=== PATIENT | female | born 1990 | race Two or more races ===

== ENCOUNTER 2016-12-18 18:45 | Outpatient (CLI) | payer BC ==
--- NOTE | 2016-12-19 11:07 | Ultrasound Report ---
PELVIC ULTRASOUND: 12/18/2016 CLINICAL INDICATION: Pelvic pain, ovarian cyst. COMPARISON: CT 03/30/2016, ultrasound 09/29/2013. TECHNIQUE: Transabdominal pelvic ultrasound performed for global evaluation. Transvaginal pelvic ul trasound performed for detailed evaluation. Real-time scanning performed and static images obtained. FINDINGS: The uterus is anteverted, measuring 8.5 x 5.9 x 4.3 cm. The endometrial echo complex yolanda ures 11 mm. No focal myometrial lesion is present. The right ovary measures 3.4 x 2.4 x 2.1 cm, and demonstrates a 1.6 cm hemorrhagic cyst. The left ovary measures 2.2 x 1.9 x 1.8 cm, and appears unr emarkable. No free fluid is present. IMPRESSION: HEMORRHAGIC CYST IN THE RIGHT OVARY. JOB #: [id number] EXT JOB #:[id number]
== END 2016-12-18 18:46 | disposition home or self-care (01) ==
LOC: DI 18:45
PROVIDERS: ATTEND Physician Assistant Medical
DX: N83.201 Unspecified ovarian cyst, right side (principal)
CPT/HCPCS: 76830; 76856

== ENCOUNTER 2017-02-17 08:00 | Outpatient (CLI) | payer BC | END 2017-02-17 23:59 | disposition home or self-care (01) | LOC: LAB.R 08:00 | PROVIDERS: ATTEND Obstetrics & Gynecology | DX: Z11.3 Encounter for screening for infections with a predominantly sexual mode of transmission (principal) | CPT/HCPCS: 87491; 87591 ==

== ENCOUNTER 2017-05-29 12:38 | Outpatient (CLI) | payer BC ==
--- NOTE | 2017-06-01 16:21 | Ultrasound Report ---
OB ULTRASOUND: 05/29/2017 CLINICAL INDICATION: anatomy. TECHNIQUE: Real-time scanning was performed with sales representative leather goods static images obtained. LAST MENSTRUAL PERIOD: 12/23/2016 Clinical Age: 22 weeks 3 days US Age: 21 weeks 6 days EFW Hadlock: 470 grams EFW% Hadlock: --- Heart Rate: 140 bpm EDC: 09/29/2017 US EDC: 10/03/2017 BPD Hadlock: 21 weeks 4 days; Mean mm 52 cm HC Hadlock: 21 weeks 3 days; Mean mm 192 AC Hadlock: 21 weeks 4 days; Mean mm 165 FL Hadlock: 22 weeks 5 days; Mean mm 40 Presentation: cephalic Placental Location: R - wrap Cervical Length: 3.2 cm Amniotic Fluid: 15.2 cm FINDINGS: There is a single viable intrauterine gestation, in cephalic presentation. heart rate is 140 BPM. The placenta is right lateral. There appears to be a velamentous cord insertion present, without evidence of vasa previa. Amniotic fluid volume is subjectively normal, with a deepest pocket of 4.9 cm. By size, the fetus measures 21 weeks 6 days (22 weeks 3 days by LMP). The following anatomic structures were visualized and appear normal: The intracranial contents, including the ventricles and posterior fossa; the lips and orbits; the spine; the heart, including 4 chamber view and outflow tracts, and diaphragm; the abdominal contents, including the stomach, the bilateral kidneys, and urinary bladder, as well as a normal 3 vessel cord insertion; 4 limbs. No free fluid or adnexal lesion is appreciated. IMPRESSION: SINGLE VIABLE INTRAUTERINE GESTATION, WITH SIZE IN KEEPING WITH LMP DATING. NORMAL ANATOMIC SURVEY. VELAMENTOUS UMBILICAL CORD INSERTION INTO THE PLACENTA, WHICH CAN BE ASSOCIATED WITH GROWTH RESTRICTION. RECOMMEND SERIAL FOLLOWUP ULTRASOUND FOR GROWTH ASSESSMENT EVERY FOUR TO SIX WEEKS BEGINNING AT 24 WEEKS. TD: 05/29/2017 16:15 [facility]
== END 2017-05-29 12:39 | disposition home or self-care (01) ==
LOC: DI 12:38
PROVIDERS: ATTEND Obstetrics & Gynecology
DX: Z36.9 Encounter for antenatal screening, unspecified (principal)
CPT/HCPCS: 76811

== ENCOUNTER 2017-06-24 12:49 | Outpatient (CLI) | payer BC ==
--- NOTE | 2017-06-26 11:04 | Ultrasound Report ---
OB FOLLOWUP: 06/24/2017 CLINICAL INDICATION: Check growth, velamentous cord insertion COMPARISON: 05/29/2017. TECHNIQUE: Real-time scanning was performed with sales representative sales manager static images obtained. LAST MENSTRUAL PERIOD 12/27/2016 Clinical Age 25 weeks 4 days US Age 25 weeks 3 days EFW Hadlock 850 g EFW% Hadlock --- Heart Rate 137 bpm EDC --- US EDC 10/04/2017 BPD Hadlock 25 weeks 3 days; Mean mm 62.7 HC Hadlock 25 weeks 1 day; Mean mm 231.8 AC Hadlock 25 weeks 3 days; Mean mm 208.5 FL Hadlock 26 weeks 3 days; Mean mm 48.9 Presentation cephalic Placental Location anterior Cervical Length --- Amniotic Fluid 19.0 cm FINDINGS: There is a single viable intrauterine gestation, in cephalic presentation. heart rate is 137 BPM. The placenta is anterior, without evidence of previa. Amniotic fluid volume is normal, with an DEANDRA of 19. The cord insertion into the placenta again appears velamentous. By size, the fetus measures 25 weeks 3 days (25 weeks 4 days by previous sonogram). No free fluid or adnexal lesion is appreciated. IMPRESSION: SINGLE VIABLE INTRAUTERINE GESTATION, WITH EXPECTED GROWTH. STABLE APPEARANCE OF VELAMENTOUS CORD INSERTION. [facility]
== END 2017-06-24 12:50 | disposition home or self-care (01) ==
LOC: DI 12:49
PROVIDERS: ATTEND Obstetrics & Gynecology
DX: Z36.4 Encounter for antenatal screening for fetal growth retardation (principal)
CPT/HCPCS: 76816

== ENCOUNTER 2017-07-28 11:43 | Outpatient (CLI) | payer BC, OTHER ==
--- NOTE | 2017-07-28 16:17 | Ultrasound Report ---
OB ULTRASOUND: 07/28/2017 CLINICAL INDICATION: Check growth, velamentous cord insertion. COMPARISON: 06/24/2017, 05/29/2017. TECHNIQUE: Real-time scanning was performed with renewals representative static images obtained. LAST MENSTRUAL PERIOD 12/23/2016 Clinical Age 31 weeks 0 days US Age 31 weeks 2 days EFW Hadlock 1726 grams EFW% Hadlock 52% Heart Rate 141 bpm EDC 09/29/2017 US EDC 09/27/2017 BPD Hadlock 30 weeks 5 days; Mean mm 76 HC Hadlock 31 weeks 2 days; Mean mm 285 AC Hadlock 31 weeks 2 days; Mean mm 272 FL Hadlock 31 weeks 1 day; Mean mm 60 Presentation cephalic Placental Location anterior Cervical Length 2.87-closed Amniotic Fluid DEANDRA 13.8; MVP 5.6 cm FINDINGS: There is a single viable intrauterine gestation, in cephalic presentation. heart rate is 141 BPM. The placenta is anterior. Amniotic fluid volume is normal, with an DEANDRA of 13.8. By size, the fetus measures 31 weeks 2 days (31 weeks 0 days per order ). Estimated weight by Hadlock method is 1726 grams. No free fluid or adnexal lesion is appreciated. IMPRESSION: SINGLE VIABLE INTRAUTERINE GESTATION, WITH SIZE IN KEEPING WITH GIVEN DATING. ESTIMATED WEIGHT OF 1726 GRAMS. NORMAL DEANDRA. TD: 07/28/2017 15:14 MTDD
== END 2017-07-28 11:44 | disposition home or self-care (01) ==
LOC: DI 11:43
PROVIDERS: ATTEND Obstetrics & Gynecology
DX: Z36.9 Encounter for antenatal screening, unspecified (principal)
CPT/HCPCS: 76816

== ENCOUNTER 2017-08-05 16:55 | Outpatient (CLI) | payer BC, OTHER ==
--- NOTE | 2017-08-05 18:32 | PROVIDER PROGRESS NOTE ---
Subjective - Prog Note Date Prog Note Date: 08/05/17 Prog Note Time: 18:30 - Subjective Subjective: Cheri Gongora is a 26-year-old -[place] woman at 34 weeks gestation who reports decreased movement. She presents to labor and delivery without signs or symptoms of preeclampsia or labor. Her abdomen is nontender and acontractile. Her NST is reactive and heart tracing is category 1. Patient is known to have marginal cord insertion. She is to begin biweekly NSTs at 34 weeks. She is currently having a growth monitored with every 4 week ultrasounds. Objective - Vital Signs/Intake & Output Vital Signs: Vital Signs x48h Temp Pulse Resp BP Pulse Ox 08/05/17 17:17 98.2 F 85 16 138/90 H 99 08/05/17 17:05 85 124/80
[2017-08-05 18:47] VITALS: BP 124/80
== END 2017-08-05 18:30 | disposition home or self-care (01) ==
LOC: WFO 16:55 → FBP 16:57 → WFO 18:30
PROVIDERS: ATTEND Obstetrics & Gynecology
DX: O36.8130 Decreased fetal movements, third trimester, not applicable or unspecified (principal); Z3A.34 34 weeks gestation of pregnancy
CPT/HCPCS: 99213

== ENCOUNTER 2017-08-27 08:00 | Outpatient (CLI) | payer BC, OTHER | END 2017-08-27 08:01 | disposition home or self-care (01) | LOC: LAB.R 08:00 | PROVIDERS: ATTEND Obstetrics & Gynecology | DX: Z36.89 Encounter for other specified antenatal screening (principal) | CPT/HCPCS: 87081 ==

== ENCOUNTER 2017-09-28 11:38 | Inpatient (IN) | payer BC, OTHER ==
[2017-09-28] MEDS ORDERED: LACTATED RINGERS 1,000 ML IV ONE ×2 (13:04→13:35)
[2017-09-28] MEDS ORDERED: OXYTOCIN 10 UNIT/ML VIAL ONE (13:04)
[2017-09-28] MEDS ORDERED: WITCH HAZEL/GLYCERIN 1 EACH MED..PAD TOP PRN (13:07)
[2017-09-28] MEDS ORDERED: IBUPROFEN 800 MG TABLET PO SCH (13:07)
[2017-09-28] MEDS ORDERED: OXYTOCIN 10 UNIT/ML VIAL IM ONE (13:07)
[2017-09-28] MEDS ORDERED: HYDROCORTISONE/PRAMOXINE 10 GM PR PRN (13:07)
[2017-09-28] MEDS ORDERED: LIDOCAINE 1% 50 ML MDV TD ONE (13:20)
[2017-09-28] MEDS ORDERED: LIDOCAINE 1% 50 ML MDV ONE (13:27)
[2017-09-28] MEDS ORDERED: fentaNYL 100 MCG/2 ML VIAL IVP SCH (13:30)
[2017-09-28] MEDS ORDERED: SODIUM CHLORIDE FLUSH 0.9% 10 ML SYRINGE ONE (13:34)
[2017-09-28] MEDS ORDERED: fentaNYL 100 MCG/2 ML VIAL ONE (13:35)
[2017-09-28] MEDS ORDERED: diphenhydrAMINE 25 MG CAPSULE PO PRN (14:13)
[2017-09-28] MEDS ORDERED: OXYTOCIN/SODIUM CHLORIDE 250 ML IV ONE (14:13)
[2017-09-28] MEDS ORDERED: ONDANSETRON 4 MG/2 ML VIAL IVP PRN (14:13)
--- NOTE | 2017-09-28 14:21 | DELIVERY NOTE ---
Delivery Note - Infant Delivery Method Infant Delivery Method: positive: Spontaneous vaginal delivery - Presentation Presentation: positive: Vertex - Nuchal Cord Nuchal Cord: positive: None - Anesthetic Anesthetic: positive: Lidocaine - 1% plain Volume: positive: Other (20cc) - Amniotic Fluid Description Amniotic Fluid Description: positive: Clear - Episiotomy Type Episiotomy Type: positive: None - Laceration Laceration: positive: 2nd degree - Suture Suture Type: positive: Vicryl Suture Size: positive: 2-0, 3-0 - Delivery Outcome Delivery Outcome: positive: Livebirth - [place]: positive: Bulb syringe, Stimulated, Warmed [place] sex: positive: Female - Cord Cord: positive: 3 vessels - Placenta Placenta: positive: Intact (Marginal Cord Insertion) - Estimated Blood Loss Estimated Blood Loss (in cc): 400 - Post Delivery Events Post Delivery Events: positive: No post delivery events - Delivery Comments (Free Text/Narrative) Delivery Comments (Free Text/Narrative): Patient arrived complete and delivered shortly after
[2017-09-28] MEDS ORDERED: LACTATED RINGERS 1,000 ML IV SCH (15:00)
[2017-09-28] MEDS: IBUPROFEN 600 MG TABLET PO SCH ×2 (16:58→23:06)
[2017-09-28] MEDS: ACETAMINOPHEN 500 MG TABLET PO SCH (16:59)
--- NOTE | 2017-09-28 22:40 | PROCEDURE REPORT ---
DATE OF SERVICE: 09/28/2017 Physician: Trung Castorena MD PREDELIVERY DIAGNOSES: 1. A 39-week, 6 day gestation. 2. Active labor, second stage. 3. Rapid labor. 4. Velamentous/marginal cord insertion. POSTOPERATIVE PREDELIVERY DIAGNOSES: 1. A 39-week, 6 day gestation. 2. Active labor, second stage. 3. Rapid labor. 4. Velamentous/marginal cord insertion. 5. Second-degree laceration. MARBLE MACHINE TENDER: Trung Castorena MD, FACOG; Comfort Nj RN. (attended ) ANESTHESIA: 20 mL of lidocaine local to the perineum; sedation with 100 mcg of fentanyl IV push. COMPLICATIONS: None. BLOOD LOSS: 400. PROCEDURE: Vaginal delivery with subsequent repair second degree laceration. FINDINGS: I was alerted to the patient arriving at labor and delivery at 1249 hours. The patient rapidly progressed and delivered at 1307 hours, at the time The had no evident trauma or congenital anomalies. weight 6 pounds 13 ounces with Apgars of 8/9. There is clear fluid at the time of delivery and no nuchal cord. Placenta was delivered intact with 3-vessel cord. There was no cord entanglement. The cord insertion was marginal or velamentous. Placenta was inspected and found to be intact without evidence of abruption, infection or meconium. Perineum had a midline second degree laceration which extended upward 4 cm, but did not extend to the external anal muscle. This was uneventfully repaired. TECHNIQUE: At 1249, I was alerted of patient arriving in labor and delivery, complete and pushing. I came immediately to labor and delivery and arrived just as the head was . While I was putting on my gloves, Comfort Nj controlled the head during for an atraumatic delivery of the head but the posterior shoulder did catch the perineum resulting in a second-degree laceration. The sequence of events was rapid and IV could not be placed on such short notice. was placed on maternal abdomen. Once cord stopped pulsating, it was doubly clamped and transected. Cord blood sample was taken. I began laceration repair after injecting the perineum with 20 mL of lidocaine. The patient was very anxious and complained of discomfort. Subsequently, IV was started and 100 mcg of fentanyl was given. After allowing some time for the fentanyl effect to take hold, we began the repair. The apex of the vaginal wound was identified and this running suture started at that point and continued down to the hymenal ring with care taken to reapproximate the hymenal ring. Three interrupted sutures of 2-0 Vicryl were placed through the perineal body and brought it into apposition. The perineal skin was closed with interrupted vertical mattress stitches of 3-0 Vicryl. The wound was inspected and found to be intact and no further bleeding. Cervix was visualized intact. At that point, the procedure was finished and patient was allowed to begin nursing. All sponge, needle and instrument counts were confirmed as correct. TD: 09/28/2017 15:36 ALEX
[2017-09-29] MEDS: ACETAMINOPHEN 500 MG TABLET PO SCH ×2 (00:36→08:05)
[2017-09-29] MEDS: IBUPROFEN 600 MG TABLET PO SCH ×2 (04:44→16:31)
[2017-09-29 06:31] LABS: BASOPHILS % (AUTO) 0.2 %; EOSINOPHILS % (AUTO) 0.2 %; LYMPHOCYTES # (AUTO) 1.8 10^3/uL (1.5-3.5); LYMPHOCYTES % (AUTO) 12.2 %; MEAN CORPUSCULAR HEMOGLOBIN 29.2 pg (27.0-31.0); MEAN CORPUSCULAR HGB CONC 32.4 g/dL (32.0-36.0); MEAN PLATELET VOLUME 7.9 fL (7.9-10.8); MONOCYTES # (AUTO) 0.6 10^3/uL (0.0-1.0); MONOCYTES % (AUTO) 4.2 %; NEUTROPHILS # (AUTO) 12.2 10^3/uL (1.5-6.6); NEUTROPHILS % (AUTO) 83.2 %; PLT - PLATELET COUNT 252 10^3/uL (130-450); RED BLOOD COUNT 3.42 10^6/uL (4.20-5.40); RED CELL DISTRIBUTION WIDTH 13.3 % (12.0-15.0); WHITE BLOOD COUNT 14.7 x10^3/uL (4.8-10.8)
--- NOTE | 2017-09-29 09:35 | HISTORY & PHYSICAL EXAMINATION ---
DATE OF SERVICE: 09/28/2017 Physician: Trung Castorena MD DIAGNOSES 1. Term , labor. 2. Velamentous cord insertion. 3. Rapid labor. HISTORY OF PRESENT ILLNESS: The patient is a 26-year-old primigravida at 39 weeks' 6 days' gestation based on LMP of December 23, yielding an EDC of September 29 confirmed by 11-week ultrasound. Earlier in the morning, she called complaining of contractions before 11:00 and was told to come to Labor and Delivery. She presented to Labor and Delivery at 1245 hours in active labor and complete. Prior to this onset of labor, at 7 a.m. this morning she had Anthony Muse. She had no suspicion of ruptured membranes. She has no signs or symptoms of preeclampsia. Group B streptococcus status is negative. [facility]. She was identified as having a marginal cord insertion that was followed with serial ultrasound. growth was as expected. She was a planned induction at 40 weeks. BASELINE OBSTETRICAL LABS: Blood type O positive, antibody screen negative, GC/ chlamydia negative, RPR negative, hepatitis B surface antigen negative, GC negative, quad marker normal. Glucola screen 114. GBS negative. PAST MEDICAL HISTORY: Healthy, active young adult. No chronic disease history. Prior history of anemia. ALLERGIES: NO KNOWN DRUG ALLERGIES. MEDICATIONS: vitamins with iron. FAMILY HISTORY: Asthma, mother. Leukemia, father. Diabetes, paternal relatives. Depression. No congenital anomalies, sickle cell, or malformations. SOCIAL HISTORY: Stable domestic relationship. 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 No drug, tobacco, or alcohol use. REVIEW OF SYSTEMS CONSTITUTIONAL: Negative. HEENT: Negative. LUNGS: Negative. CARDIAC: Negative. GASTROINTESTINAL: Negative. GENITOURINARY: Negative. MUSCULOSKELETAL: Negative. SKIN: Negative. NEUROLOGIC: Negative. PHYSICAL EXAMINATION GENERAL: Patient in the throes of labor, coming close to or actually . VITAL SIGNS: Temperature 98.8, pulse 77, blood pressure 139/82, respirations 20 , saturation 100. Exam done after delivery. HEENT: Dentition in good repair. Supple neck. No thyromegaly. EOMI. Nonicteric sclerae. LUNGS: Clear to auscultation. CARDIAC: Regular. No murmur or gallop. BREASTS: Full. No mass. Lactating. ABDOMEN: No tenderness. GENITOURINARY: Uterus firm, nontender, 18-week size. External genitalia: Second-degree midline laceration. Cervix intact. EXTREMITIES: Moves all 4 extremities well. No marked edema. NEUROLOGIC: Grossly intact. ADMISSION LABS: Pending. ASSESSMENT: Patient delayed presenting at the hospital and at the time of initial presentation was near . Uneventful delivery. Reference my dictated note. PLAN: Normal supportive care during recovery. TD: 09/28/2017 15:29 MTDD
[2017-09-29 13:12] VITALS: BP 128/82
--- NOTE | 2017-09-29 16:54 | DISCHARGE SUMMARY ---
Physician: Trung Castorena MD DATE OF ADMISSION: 09/28/2017 DATE OF DISCHARGE: 09/29/2017 DIAGNOSIS: Term ; active labor, successful vaginal delivery of a living female , precipitous delivery; marginal cord insertion. PROCEDURES: Manually assisted vaginal delivery; second-degree laceration repair. COMPLICATIONS: None. HISTORY: The patient is a 26-year-old primigravida who was closely followed at our clinic due to velamentous cord insertion. At 0800 on Thursday she called in to report contractions and was recommended to come to Labor and Delivery. She delayed coming to Labor and Delivery and arrived at or about 1245 hours, complete and pushing. HOSPITAL COURSE: Patient arrived and immediately came to Labor and Delivery. At the time of my arrival, the patient was , with Comfort jN attending the delivery. Delivery procedure done remarkably. Reference note. There was an uneventful second-degree laceration repair. Blood loss was minimal at 400. Mother, father, and baby all bonded well. Patient recovered well with pain well in control. She nursed without difficulty. By post-delivery day number 1, she had recovered her normal function and self-care abilities. She strongly desired discharge home and was discharged after post-24 hours of the delivery. Lochia was scant. Post-delivery hemoglobin was 10.0. She was given complete wound care and child's nurse instructions. DISCHARGE MEDICATIONS 1. Motrin 600 q.6 hours. 2. Vicodin 5/325 every 4 hours p.r.n. breakthrough pain. 3. Ferrous sulfate 325 b.i.d. 4. Colace 250 b.i.d. TD: 09/29/2017 08:48
== END 2017-09-29 13:15 | disposition home or self-care (01) | DRG 775 ==
LOC: FBP 12:40 → WFO 12:44 → FBP 12:44 → UNDOADMIN 13:06 → FBP 13:06 → WFO 13:06 → EDSTATUS 13:13 → UNDODISIN 09-29 13:15
PROVIDERS: ADMIT Obstetrics & Gynecology; ATTEND Obstetrics & Gynecology
PROC: 10E0XZZ Delivery of Products of Conception, External Approach (ICD-10-PCS; principal; 2017-09-28)
DX: O43.123 Velamentous insertion of umbilical cord, third trimester (principal); O70.1 Second degree perineal laceration during delivery; O62.3 Precipitate labor; Z3A.39 39 weeks gestation of pregnancy; Z37.0 Single live birth
CPT/HCPCS: 36415; 85025; 99212